=== PATIENT | female | born 1970 ===

== ENCOUNTER 2018-01-05 15:26 | Outpatient (CLI) | payer OTHER ==
--- NOTE | 2018-01-05 16:17 | RAD ---
CERVICAL SPINE FIVE VIEWS: HISTORY: A 47-year-old female with a history of cervicalgia. FINDINGS: The upper odontoid and some portions of C1 are obscured on the AP open-mouth view and C7-T1 are obscu red on the lateral view. Disk osteophytosis, particularly at C4-C5, with some facet arthrosis. No p revertebral soft tissue swelling. No significant malalignment. No significant acute fracture involv ing the visualized cervical spine. IMPRESSION: Cervical spondylosis, most marked at C4-C5. POS: EFREN
== END 2018-01-05 15:27 | disposition home or self-care (01) ==
LOC: MADRAD 15:26
PROVIDERS: ATTEND Family Medicine
DX: M54.2 Cervicalgia (principal); M47.892 Other spondylosis, cervical region
CPT/HCPCS: 72050